=== PATIENT | female | born 1935 | race African-American/Black ===

== ENCOUNTER 2021-03-23 07:26 | Inpatient (IN) | payer OTHER ==
[~2021-03-23] VITALS: Ht 165.1 cm; Wt 65.8 kg
[2021-03-23] MEDS ORDERED: SODIUM CHLORIDE 0.9% 1,000 ML IV ONE (07:45)
[2021-03-23 08:09] LABS: BASOPHILS % 0.9 % (0.0-2.0); EOSINOPHILS % 0.6 % (0.0-5.0); LYMPHOCYTES % 12.7 % (20.0-50.0); MEAN CORPUSCULAR HEMOGLOBIN 23.1 pg (28.0-32.0); MEAN CORPUSCULAR VOLUME 74.1 fL (81.0-99.0); MEAN PLATELET VOLUME 8.7 fl (7.4-10.4); MONOCYTES % 6.5 % (2.0-8.0); NEUTROPHILS % 79.3 % (40.0-76.0); PLATELET 269 x1000/uL (130-400); RED BLOOD CELL COUNT 3.91 mill/uL (4.2-5.4); RED CELL DISTRIBUTION WIDTH 19.9 % (11.6-14.6)
[2021-03-23 08:16] LABS: CHLORIDE 109 mEq/L (98-107)
[2021-03-23 08:20] LABS: INR 1.1; PROTHROMBIN TIME 11.9 sec (9.6-11.0)
[2021-03-23 08:21] LABS: ETHANOL BLOOD < 10 mg/dL
[2021-03-23 08:25] LABS: CREATINE KINASE 65 IU/L (26-192)
[2021-03-23 08:54] LABS: BG BASE EXCESS -4.6 mmol/L (-2.0-2.0); BG CARBOXYHEMOGLOBIN 0.4 % (0.5-1.5); BG DEOXYHEMOGLOBIN 3.1 % (0.0-5.0); BG FRACTION INSPIRED OXYGEN 21; BG HCO3 ACT 18.5 mmol/L (22.0-26.0); BG METHEMOGLOBIN 0.2 % (0.0-1.5); BG OXYGEN SATURATION 96.9 % (92.0-98.5); BG OXYHEMOGLOBIN 96.3 % (94.0-97.0); BG PCO2 27.5 mmHg (35.0-45.0); BG PH 7.446 (7.350-7.450); BG PO2 88.3 mmHg (75.0-100.0); BG SAMPLE SITE RIGHT RADIAL; BG TOTAL HEMOGLOBIN 9.2 g/dL (12.0-18.0); BG VENT MODE ROOM AIR
[2021-03-23 09:33] LABS: CLARITY URINE CLEAR (CLEAR); COLOR URINE YELLOW (YELLOW); KETONES URINE TRACE (NEGATIVE); LEUKOCYTE ESTERASE URINE 1+ (NEGATIVE); NITRITE URINE NEGATIVE (NEGATIVE); OCCULT BLOOD URINE NEGATIVE (NEGATIVE); PH URINE 5.5 (4.5-8.0); PROTEIN URINE TRACE (NEGATIVE); SPECIFIC GRAVITY URINE 1.014 (1.005-1.030); UROBILINOGEN URINE 0.2 E.U./dL (0.2-1.0)
[2021-03-23] MEDS ORDERED: CEFTRIAXONE 1 G PREMIX 50 ML IV NR (10:00)
[2021-03-23] MEDS ORDERED: ASPIRIN 81MG TABLET PO NR (10:00)
[2021-03-23] MEDS ORDERED: HEPARIN 25,000 UNITS PREMIX 250 ML IV SCH (10:15)
[2021-03-23] MEDS ORDERED: HEPARIN BOLUS PRN aPTT 30-44 IV (10:15)
[2021-03-23] MEDS ORDERED: HEPARIN BOLUS PRN aPTT <30 IV (10:15)
[2021-03-23] MEDS ORDERED: HEPARIN 60 UNITS/KG BOLUS IV NR (10:15)
[2021-03-23] MEDS ORDERED: FUROSEMIDE 20MG/2ML VIAL IVP NR (10:30)
[2021-03-23] MEDS ORDERED: ENOXAPARIN 40MG/0.4ML SYR SUBCUT NR (10:45)
[2021-03-23] MEDS ORDERED: KCL 20MEQ/100ML PREMIX 100 ML IV ONE (11:45)
[2021-03-23] MEDS ORDERED: PIPERACILLIN/TAZOBACTAM 3.375GM/50ML PREMIX IV ONE (11:45)
[2021-03-23] MEDS ORDERED: KETOROLAC 15MG/ML VIAL IV PRN (13:00)
[2021-03-23] MEDS ORDERED: ACETAMINOPHEN 325MG TABLET PO PRN ×2 (13:00)
[2021-03-23] MEDS ORDERED: IPRATROPIUM/ALBUTEROL 0.5-3(2.5)MG/3ML NEB NEB PRN (13:00)
[2021-03-23] MEDS: DEXT 5%/LACTATED RINGERS 1,000 ML IV SCH (13:00)
[2021-03-23] MEDS ORDERED: GUAIFENESIN 200MG/10ML SUGAR FREE UDC PO PRN (13:00)
[2021-03-23] MEDS ORDERED: DOCUSATE SODIUM 100MG CAPSULE PO PRN (13:00)
[2021-03-23] MEDS ORDERED: NA PHOS,M-B/NA PHOS,DI-BA ENEMA 118ML PR PRN (13:00)
[2021-03-23] MEDS ORDERED: NITROGLYCERIN 0.4MG TABLET SL SL PRN (13:00)
[2021-03-23] MEDS ORDERED: MAGNESIUM/ALUMINUM HYDROXIDE/SIMETHICONE 30ML UDC PO PRN (13:00)
[2021-03-23] MEDS ORDERED: ONDANSETRON HCL 4MG/2ML INJ IV PRN (13:00)
[2021-03-23 13:29] LABS: T4 FREE 1.66 ng/dL (0.76-1.46)
[2021-03-23] MEDS: CLONIDINE 0.1MG TABLET PO PRN ×2 (13:30→20:30)
[2021-03-23 14:00] LABS: FOLIC ACID (FOLATE) SERUM 8.8 ng/mL (>5.38)
[2021-03-23] MEDS ORDERED: VANCOMYCIN 1 G PREMIX 200 ML IV SCH (15:00)
[2021-03-23 17:34] VITALS: BP 144/69
[2021-03-23] MEDS ORDERED: ISOS30TA91 MT (17:55)
[2021-03-23] MEDS ORDERED: AMLO10TA80 MT (17:57)
[2021-03-23] MEDS ORDERED: HYDR-4135 MT (17:58)
[2021-03-23] MEDS ORDERED: ROSU5TAB PO (18:01)
[2021-03-23] MEDS ORDERED: APIX5TAB MT (18:08)
[2021-03-23] MEDS ORDERED: LEVO100T9 PO (18:08)
[2021-03-23] MEDS ORDERED: LOSA100T32 MT (18:08)
[2021-03-23] MEDS ORDERED: TAP5 PO (18:08)
[2021-03-23] MEDS ORDERED: ASPI-1497 MT (18:09)
[2021-03-23] MEDS ORDERED: DOCU-138 MT (18:13)
[2021-03-23 18:23] VITALS: BP 144/69
[2021-03-23] MEDS ORDERED: T3 PO (18:35)
[2021-03-23] MEDS ORDERED: INSU100I13 SQ (18:35)
[2021-03-23] MEDS ORDERED: PIPERACILLIN/TAZ 3.375G PREMIX 50 ML IV SCH (19:00)
[2021-03-23 19:42] VITALS: BP 161/68
[2021-03-23] MEDS ORDERED: DEXTROSE 50% WATER 50ML SYRINGE IV PRN (20:15)
[2021-03-23] MEDS ORDERED: TRAMADOL 50MG TABLET PO PRN (20:15)
[2021-03-23] MEDS: ATORVASTATIN CALCIUM 40MG TABLET PO SCH (20:29)
[2021-03-23] MEDS: FAMOTIDINE 20MG TABLET PO SCH (20:29)
[2021-03-23] MEDS: ASCORBIC ACID 500 MG TABLET PO SCH (20:29)
[2021-03-23] MEDS: PIPERACILLIN/TAZOBACTAM 3.375 G in DEXT 5% WATER 100 ML IV SCH (20:59)
[2021-03-23] MEDS ORDERED: ZOLPIDEM TARTRATE 5MG TABLET PO PRN (21:00)
[2021-03-23 22:02] VITALS: BP 158/56
[2021-03-23] MEDS: BLOOD SUGAR DIAGNOSTIC STRIP TEST SCH (22:04)
[2021-03-23] MEDS: INSULIN LISPRO 100 UNITS/ML SUBCUT SCH (22:14)
[2021-03-23] MEDS: VANCOMYCIN 1 G PREMIX 200 ML IV SCH (22:14)
[2021-03-23] MEDS: NITROGLYCERIN OINT 1GM/INCH UDPKT TD SCH (22:17)
[2021-03-23 22:44] VITALS: BP 147/58
[2021-03-23 23:44] VITALS: BP 152/62
[2021-03-24] VITALS (15 sets, daily range): BP systolic 112–157; BP diastolic 46–68
[2021-03-24 01:41] LABS: CREATINE KINASE MB FRACTION 1.8 ng/mL (0.5-3.6)
[2021-03-24] MEDS: PIPERACILLIN/TAZOBACTAM 3.375 G in DEXT 5% WATER 100 ML IV SCH ×4 (02:55→19:38)
[2021-03-24] MEDS: DEXT 5%/LACTATED RINGERS 1,000 ML IV SCH ×2 (03:02→15:55)
[2021-03-24] MEDS: NITROGLYCERIN OINT 1GM/INCH UDPKT TD SCH ×3 (05:52→22:00)
[2021-03-24] MEDS ORDERED: ENOXAPARIN 30MG/0.3ML SYR SUBCUT SCH ×2 (06:00→09:00)
[2021-03-24] MEDS: BLOOD SUGAR DIAGNOSTIC STRIP TEST SCH ×4 (06:10→21:00)
[2021-03-24 06:33] LABS: CHLORIDE 109 mEq/L (98-107)
[2021-03-24 06:46] LABS: LDL CHOLESTEROL 75 mg/dL (5-100)
[2021-03-24 06:48] LABS: HDL CHOLESTEROL 46 mg/dL (40-59)
[2021-03-24 06:49] LABS: PHOSPHORUS 2.6 mg/dL (2.5-4.9)
[2021-03-24] MEDS ORDERED: LEVOTHYROXINE SODIUM 88MCG TABLET PO SCH (06:50)
[2021-03-24 07:22] LABS: BASOPHILS % 0.9 % (0.0-2.0); EOSINOPHILS % 1.7 % (0.0-5.0); HEMATOCRIT. 25.3 % (36.0-48.0); LYMPHOCYTES % 15.2 % (20.0-50.0); MEAN CORPUSCULAR HEMOGLOBIN 23.2 pg (28.0-32.0); MEAN CORPUSCULAR VOLUME 73.4 fL (81.0-99.0); MEAN PLATELET VOLUME 9.2 fl (7.4-10.4); MONOCYTES % 9.7 % (2.0-8.0); NEUTROPHILS % 72.5 % (40.0-76.0); PLATELET 228 x1000/uL (130-400); RED BLOOD CELL COUNT 3.45 mill/uL (4.2-5.4); RED CELL DISTRIBUTION WIDTH 19.9 % (11.6-14.6)
[2021-03-24] MEDS ORDERED: POTASSIUM CHLORIDE 20MEQ/PACKET PO NR (08:15)
[2021-03-24] MEDS: APIXABAN 5 MG TABLET PO SCH ×2 (08:57→17:00)
[2021-03-24] MEDS: ASCORBIC ACID 500 MG TABLET PO SCH ×2 (08:58→21:00)
[2021-03-24] MEDS: INSULIN LISPRO 100 UNITS/ML SUBCUT SCH ×4 (08:59→21:00)
[2021-03-24] MEDS ORDERED: ZINC SULFATE 220 MG ( 50 ) CAPSULE PO SCH (09:00)
[2021-03-24] MEDS ORDERED: ASPIRIN 81MG EC TABLET PO SCH (09:00)
[2021-03-24] MEDS ORDERED: CHOLECALCIFEROL (D3) 1000 UNIT TABLET PO SCH (09:00)
[2021-03-24] MEDS ORDERED: LOSARTAN POTASSIUM 100 MG TABLET PO SCH (09:00)
[2021-03-24] MEDS ORDERED: KCL 20MEQ/100ML PREMIX 100 ML IV NR ×2 (10:00→11:30)
[2021-03-24] MEDS: FAMOTIDINE 20MG TABLET PO SCH (21:00)
[2021-03-24] MEDS: ATORVASTATIN CALCIUM 40MG TABLET PO SCH (21:00)
[2021-03-24] MEDS: VANCOMYCIN 1 G PREMIX 200 ML IV SCH (21:40)
== END 2021-03-24 23:45 | disposition short-term general hospital (02) | DRG 871 ==
LOC: ER 07:26 → 3WST 11:54 → ENRESERV 13:17 → 3WST 18:07
PROVIDERS: ADMIT Internal Medicine; ATTEND Internal Medicine
DX: A41.9 Sepsis, unspecified organism (principal); E43 Unspecified severe protein-calorie malnutrition; G92 Toxic encephalopathy; I21.4 Non-ST elevation (NSTEMI) myocardial infarction; N39.0 Urinary tract infection, site not specified; Z20.822 Contact with and (suspected) exposure to COVID-19; E11.51 Type 2 diabetes mellitus with diabetic peripheral angiopathy without gangrene; L30.9 Dermatitis, unspecified; D63.8 Anemia in other chronic diseases classified elsewhere; E87.6 Hypokalemia; E03.9 Hypothyroidism, unspecified; I25.10 Atherosclerotic heart disease of native coronary artery without angina pectoris; I10 Essential (primary) hypertension; I44.0 Atrioventricular block, first degree; I87.2 Venous insufficiency (chronic) (peripheral); Z79.01 Long term (current) use of anticoagulants; I25.2 Old myocardial infarction; Z79.82 Long term (current) use of aspirin; Z86.73 Personal history of transient ischemic attack (TIA), and cerebral infarction without residual deficits; Z87.891 Personal history of nicotine dependence; Z95.1 Presence of aortocoronary bypass graft; Z68.24 Body mass index [BMI] 24.0-24.9, adult; R65.20 Severe sepsis without septic shock
CPT/HCPCS: 36415; 36600; 71045; 80053; 80061; 80320; 81003; 82375; 82550; 82553; 82607; 82746; 82805; 82962; 83036; 83540; 83550; 83605; 83735; 83880; 84100; 84145; 84439; 84443; 84484; 85025; 86140; 87426; 92610; 93005; 93306; 93970; 99291; J0696; J1644; J1650; J1815; J1940; J2543; J3370; J3480; J7030; J7060; G0480

== ENCOUNTER 2021-04-03 06:18 | Inpatient (IN) | payer OTHER ==
[~2021-04-03] VITALS: Ht 165.1 cm; Wt 66.8 kg
[2021-04-03 08:22] LABS: BASOPHILS % 0.5 % (0.0-2.0); EOSINOPHILS % 0.9 % (0.0-5.0); HEMATOCRIT. 33.9 % (36.0-48.0); HEMOGLOBIN. 10.4 g/dL (12.0-16.0); LYMPHOCYTES % 8.2 % (20.0-50.0); MEAN CORPUSCULAR HEMOGLOBIN 23.8 pg (28.0-32.0); MEAN CORPUSCULAR VOLUME 77.5 fL (81.0-99.0); MEAN PLATELET VOLUME 9.2 fl (7.4-10.4); MONOCYTES % 5.8 % (2.0-8.0); NEUTROPHILS % 84.6 % (40.0-76.0); PLATELET 244 x1000/uL (130-400); RED BLOOD CELL COUNT 4.38 mill/uL (4.2-5.4); RED CELL DISTRIBUTION WIDTH 21.4 % (11.6-14.6)
[2021-04-03 08:29] LABS: CHLORIDE 105 mEq/L (98-107)
[2021-04-03 08:32] LABS: INR 1.1; PROTHROMBIN TIME 11.9 sec (9.6-11.0)
[2021-04-03 09:11] LABS: CLARITY URINE CLEAR (CLEAR); COLOR URINE YELLOW (YELLOW); KETONES URINE TRACE (NEGATIVE); LEUKOCYTE ESTERASE URINE TRACE (NEGATIVE); NITRITE URINE NEGATIVE (NEGATIVE); OCCULT BLOOD URINE TRACE (NEGATIVE); PROTEIN URINE 1+ (NEGATIVE); SPECIFIC GRAVITY URINE 1.014 (1.005-1.030)
[2021-04-03] MEDS ORDERED: LEVOFLOXACIN 750MG PREMIX 150 ML IV ONE (09:30)
[2021-04-03] MEDS ORDERED: DOCUSATE SODIUM 100MG CAPSULE PO PRN (13:15)
[2021-04-03] MEDS ORDERED: MAGNESIUM/ALUMINUM HYDROXIDE/SIMETHICONE 30ML UDC PO PRN (13:15)
[2021-04-03] MEDS ORDERED: IPRATROPIUM/ALBUTEROL 0.5-3(2.5)MG/3ML NEB NEB PRN (13:15)
[2021-04-03] MEDS ORDERED: TRAMADOL 50MG TABLET PO PRN (13:15)
[2021-04-03] MEDS ORDERED: CLONIDINE 0.1MG TABLET PO PRN (13:15)
[2021-04-03] MEDS ORDERED: GUAIFENESIN 200MG/10ML SUGAR FREE UDC PO PRN (13:15)
[2021-04-03] MEDS ORDERED: ZOLPIDEM TARTRATE 5MG TABLET PO PRN (13:15)
[2021-04-03] MEDS ORDERED: PIPERACILLIN/TAZ 3.375G PREMIX 50 ML IV SCH (13:15)
[2021-04-03] MEDS ORDERED: ACETAMINOPHEN 325MG TABLET PO PRN ×2 (13:15)
[2021-04-03] MEDS ORDERED: DEXTROSE 50% WATER 50ML SYRINGE IV PRN (13:15)
[2021-04-03] MEDS ORDERED: NITROGLYCERIN 0.4MG TABLET SL SL PRN (13:15)
[2021-04-03] MEDS ORDERED: ONDANSETRON HCL 4MG/2ML INJ IV PRN (13:15)
[2021-04-03] MEDS: ZINC SULFATE 220 MG ( 50 ) CAPSULE PO SCH (14:00)
[2021-04-03] MEDS: FAMOTIDINE 20MG TABLET PO SCH (14:00)
[2021-04-03] MEDS: LOSARTAN POTASSIUM 50 MG TABLET PO SCH (14:00)
[2021-04-03] MEDS ORDERED: VANCOMYCIN 1 G PREMIX 200 ML IV SCH (14:00)
[2021-04-03] MEDS: CHOLECALCIFEROL (D3) 1000 UNIT TABLET PO SCH (14:00)
[2021-04-03] MEDS: APIXABAN 5 MG TABLET PO SCH (14:00)
[2021-04-03 14:59] LABS: CREATINE KINASE MB FRACTION 1.2 ng/mL (0.5-3.6)
[2021-04-03] MEDS: INSULIN LISPRO 100 UNITS/ML SUBCUT SCH ×3 (15:22→22:37)
[2021-04-03] MEDS: NITROGLYCERIN OINT 1GM/INCH UDPKT TD SCH (15:26)
[2021-04-03] MEDS: PIPERACILLIN/TAZOBACTAM 2.25 G in DEXTROSE 5% WATER 50 ML IV SCH (15:26)
[2021-04-03] MEDS: BLOOD SUGAR DIAGNOSTIC STRIP TEST SCH ×2 (18:27→21:00)
[2021-04-03] MEDS ORDERED: FAMOTIDINE 20MG TABLET PO SCH (21:00)
[2021-04-03 21:30] VITALS: BP 162/67
[2021-04-03 23:59] LABS: CREATINE KINASE 61 IU/L (26-192)
[2021-04-04] VITALS (7 sets, daily range): BP systolic 113–163; BP diastolic 53–76
[2021-04-04] LABS: CREATINE KINASE MB FRACTION < 1.0 ng/mL (0.5-3.6)
[2021-04-04] MEDS: APIXABAN 5 MG TABLET PO SCH ×2 (00:34→08:45)
[2021-04-04] MEDS: NITROGLYCERIN OINT 1GM/INCH UDPKT TD SCH ×4 (00:35→22:49)
[2021-04-04] MEDS: PIPERACILLIN/TAZOBACTAM 2.25 G in DEXTROSE 5% WATER 50 ML IV SCH ×4 (01:21→21:02)
[2021-04-04] MEDS ORDERED: VANCOMYCIN 750 MG PREMIX 150 ML IV SCH ×2 (06:00→08:00)
[2021-04-04] MEDS: BLOOD SUGAR DIAGNOSTIC STRIP TEST SCH ×4 (06:32→20:53)
[2021-04-04] MEDS: INSULIN LISPRO 100 UNITS/ML SUBCUT SCH ×4 (06:33→21:20)
[2021-04-04 06:44] LABS: BASOPHILS % 0.8 % (0.0-2.0); EOSINOPHILS % 2.1 % (0.0-5.0); HEMATOCRIT. 26.8 % (36.0-48.0); HEMOGLOBIN. 8.5 g/dL (12.0-16.0); LYMPHOCYTES % 8.3 % (20.0-50.0); MEAN CORPUSCULAR VOLUME 75.5 fL (81.0-99.0); NEUTROPHILS % 80.8 % (40.0-76.0); PLATELET 208 x1000/uL (130-400); RED BLOOD CELL COUNT 3.55 mill/uL (4.2-5.4)
[2021-04-04] MEDS ORDERED: LEVOTHYROXINE SODIUM 112MCG TABLET PO SCH (06:45)
[2021-04-04 06:57] LABS: CHLORIDE 107 mEq/L (98-107)
[2021-04-04 07:09] LABS: PHOSPHORUS 2.9 mg/dL (2.5-4.9)
[2021-04-04] MEDS ORDERED: LEVOTHYROXINE SODIUM 88MCG TABLET PO SCH (08:00)
[2021-04-04] MEDS: CHOLECALCIFEROL (D3) 1000 UNIT TABLET PO SCH (08:45)
[2021-04-04] MEDS: ZINC SULFATE 220 MG ( 50 ) CAPSULE PO SCH (08:45)
[2021-04-04] MEDS: LOSARTAN POTASSIUM 50 MG TABLET PO SCH (08:46)
[2021-04-04] MEDS: FAMOTIDINE 20MG TABLET PO SCH (08:49)
[2021-04-04] MEDS ORDERED: ASPIRIN 81MG EC TABLET PO SCH (09:00)
[2021-04-04 09:52] LABS: *AMPHETAMINES SCREEN URINE NEGATIVE (NEGATIVE); *BARBITURATES SCREEN URINE NEGATIVE (NEGATIVE); *BENZODIAZEPINES SCREEN URINE NEGATIVE (NEGATIVE)
[2021-04-04 09:53] LABS: *COCAINE SCREEN URINE NEGATIVE (NEGATIVE); CANNABINOID URINE SCREEN NEGATIVE (NEGATIVE); METHADONE URINE SCREEN NEGATIVE (NEGATIVE); OPIATES URINE SCREEN PRESUMTIVE POSITIVE (NEGATIVE); PHENCYCLIDINE URINE SCREEN NEGATIVE (NEGATIVE)
[2021-04-04] MEDS ORDERED: VANCOMYCIN 500 MG PREMIX 100 ML IV SCH (10:00)
[2021-04-04] MEDS ORDERED: POTASSIUM CHLORIDE 20MEQ/PACKET NG NR (10:45)
[2021-04-05] VITALS: BP 144/54
[2021-04-05] MEDS ORDERED: LOSARTAN POTASSIUM 25 MG TABLET NG SCH (09:00)
== END 2021-04-05 00:31 | disposition short-term general hospital (02) | DRG 871 ==
LOC: ER 06:18 → 5WST 12:37 → EDBEDREQ 12:46 → EDBEDREQTM 12:46 → EDBEDREQSVC 12:46 → SUPCPDRO 13:12 → ENRESERV 19:50
PROVIDERS: ADMIT Internal Medicine; ATTEND Internal Medicine
DX: A41.9 Sepsis, unspecified organism (principal); I21.4 Non-ST elevation (NSTEMI) myocardial infarction; G92 Toxic encephalopathy; E43 Unspecified severe protein-calorie malnutrition; N39.0 Urinary tract infection, site not specified; D64.9 Anemia, unspecified; I10 Essential (primary) hypertension; E78.5 Hyperlipidemia, unspecified; I44.0 Atrioventricular block, first degree; I48.0 Paroxysmal atrial fibrillation; R25.1 Tremor, unspecified; E11.9 Type 2 diabetes mellitus without complications; E87.6 Hypokalemia; I05.0 Rheumatic mitral stenosis; Z53.29 Procedure and treatment not carried out because of patient's decision for other reasons; R13.10 Dysphagia, unspecified; Z20.822 Contact with and (suspected) exposure to COVID-19; R53.81 Other malaise; I25.10 Atherosclerotic heart disease of native coronary artery without angina pectoris; I25.2 Old myocardial infarction; Z95.1 Presence of aortocoronary bypass graft; I69.392 Facial weakness following cerebral infarction; Z68.24 Body mass index [BMI] 24.0-24.9, adult
CPT/HCPCS: 36415; 71045; 80053; 80061; 80305; 81003; 82140; 82550; 82553; 82962; 83036; 83605; 83735; 84100; 84145; 84484; 85025; 87426; 92610; 93005; 93970; 99291; J1815; J1956; J2543; J3370; J7060